=== PATIENT | female | born 1995 ===

== ENCOUNTER 2018-04-10 17:55 | Emergency (ER) | payer SELFPAY ==
--- NOTE | 2018-04-10 19:17 | RADIOLOGY REPORT (SQ) ---
EXAM DESCRIPTION: FINGER RIGHT COMPLETED DATE/TIME: 04/10/2018 6:56 pm REASON FOR STUDY: Closed finger in car door COMPARISON: None. NUMBER OF VIEWS: Three views. TECHNIQUE: AP, lateral, and oblique images acquired of the right third finger. LIMITATIONS: None. FINDINGS: MINERALIZATION: Normal. BONES: No acute fracture or dislocation. No worrisome bone lesions. SOFT TISSUES: No soft tissue swelling. No foreign body. OTHER: No other significant finding. IMPRESSION: NO RADIOGRAPHIC EVIDENCE OF ACUTE INJURY. COMMENT: SITE OF TRAUMA/COMPLAINT MARKED/STAMP COMPLETED: No TECHNICAL DOCUMENTATION: JOB ID: [id number] [employer]- All Rights Reserved Reading location - IP/workstation name: [email or web address]
--- NOTE | 2018-04-10 19:19 | ER Document Report ---
HPI - HPI Pain Level: 4 Notes: Patient is a 23-year-old female no significant past medical history who presents to the ED complaining of right third digit pain status post crush injury by a vehicle door prior to arrival. Patient states that she has noted some swelling and pain to the area. Patient does have trouble flexing her finger because of the pain. No other concerns or complaints. Denies drug allergies or IV drug use. Pain does not radiate. Denies any headache, fever, URI, sore throat, chest pain, palpitations, syncope, cough, shortness of breath , wheeze, dyspnea, abdominal pain, nausea/vomiting/diarrhea, urinary retention, dysuria, hematuria, numbness/tingling, muscle paralysis, or rash. - ROS Systems Reviewed and Negative: Yes All other systems reviewed and negative Past Medical History - Social History Smoking Status: Unknown if Ever Smoked Family History: Reviewed & Not Pertinent Vertical Provider Document - CONSTITUTIONAL Agree With Documented VS: Yes Notes: PHYSICAL EXAMINATION: GENERAL: Well-appearing, well-nourished and in no acute distress. LUNGS: Breath sounds clear to auscultation bilaterally and equal. No wheezes rales or rhonchi. HEART: Regular rate and rhythm without murmurs, rubs, gallops. Musculoskeletal: Rt hand: 3rd digit is mildly swollen with some ecchymosis noted near the PIP joint. + tenderness associated. No other tenderness to the hand. LROM to passive/active flexion 3rd digit. Strength 4+/5 due to pain. N/V intact. No laceration or erythema. Extremities: No cyanosis, clubbing, or edema b/l. Peripheral pulses 2+. Capillary refill less than 3 seconds. NEUROLOGICAL: Normal speech, normal gait. Normal sensory, motor exams PSYCH: Normal mood, normal affect. SKIN: see above. - INFECTION CONTROL TRAVEL OUTSIDE OF THE [place] IN LAST 30 DAYS: No Course - Re-evaluation Re-evalutation: 04/10/18 19:25 Patient is an afebrile, well-hydrated, 23-year-old female who presents to the ED with Rt 3rd digit of the hand crush injury, suspect contusion. Vitals are acceptable without any significant tachycardia, tachypnea, or hypoxia. PE is otherwise unremarkable for any neurovascular compromise, obvious tendon/ ligament rupture, obvious fracture/dislocation, septic joint. X-ray was unremarkable for any acute pathology. Patient is nontoxic-appearing. No other labs or imaging warranted at this time based on H&P. Rx for naproxen. Conservative measures otherwise for symptoms. Recheck with your PCM in 3-5 days. Consider consult orthopedics. Return to the ED with any worsening/ concerning symptoms otherwise as reviewed in discharge. Patient is in agreement. - Vital Signs Vital signs: Temp Pulse Resp BP Pulse Ox 98.1 F 74 16 116/68 99 04/10/18 18:10 04/10/18 18:10 04/10/18 18:10 04/10/18 18:10 04/10/18 18:10 Discharge - Discharge Clinical Impression: Finger injury Qualifiers: Encounter type: initial encounter Laterality: right Qualified Code(s): S69.91XA - Unspecified injury of right wrist, hand and finger(s), initial encounter Condition: Stable Disposition: HOME, SELF-CARE Additional Instructions: Rest, Ice, Compression, Elevation Tylenol/ibuprofen as needed Light stretches daily Strength exercises as able Moist heat and massage may help F/u with your PCP in 3-5 days for a recheck Consider consult(s) with Orthopedics/physical therapy for ongoing/worsening symptoms Return to the ED with any worsening symptoms and/or development of fever, headache, chest pain, palpitations, syncope, shortness of breath, trouble breathing, abdominal pain, n/v/d, muscle weakness/paralysis, numbness/tingling, swelling, redness, or other worsening symptoms that are concerning to you. Prescriptions: Naproxen 500 mg PO BID PRN #20 tablet PRN Reason: Referrals: [facility] [Provider Group] - Follow up as needed
[2018-04-10 19:57] VITALS: BP 120/70
== END 2018-04-10 19:58 | disposition home or self-care (01) ==
LOC: ER 17:55
DX: S67.193A Crushing injury of left middle finger, initial encounter (principal); W23.0XXA Caught, crushed, jammed, or pinched between moving objects, initial encounter
CPT/HCPCS: 99283